=== PATIENT | female | born 1960 | race Caucasian/White ===

== ENCOUNTER 2019-12-04 14:32 | Emergency (ER) | payer OTHER ==
[~2019-12-04] VITALS: Ht 165.1 cm; Wt 59.0 kg
[2019-12-04] MEDS ORDERED: PAXIL20 MG PO (14:42)
[2019-12-04] MEDS ORDERED: DESYREL150 MG PO (14:42)
[2019-12-04 15:05] VITALS: BP 144/83
== END 2019-12-04 15:05 | disposition home or self-care (01) ==
LOC: M.ERS 14:32
DX: S00.83XA Contusion of other part of head, initial encounter (principal); Z88.6 Allergy status to analgesic agent; Y04.0XXA Assault by unarmed brawl or fight, initial encounter; Y93.89 Activity, other specified; Y92.89 Other specified places as the place of occurrence of the external cause; Y99.8 Other external cause status